=== PATIENT | female | born 1985 | race Caucasian/White ===

== ENCOUNTER 2017-09-02 14:43 | Emergency (ER) | payer OTHER ==
[2017-09-02 15:22] LABS: % IMMATURE GRANULYOCYTES 0.3 % (0.0-1.1); ABSOLUTE IMMATURE GRANULOCYTES 0.02 10^3/uL (0.00-0.10); ADD DIFF? NO; ADD MORPH? NO; ADD SCAN? NO; ATYPICAL LYMPHOCYTE FLAG 10 (0-99); FRAGMENT RBC FLAG 0 (0-99); HEMATOCRIT 43.7 % (38.0-47.0); HEMOGLOBIN 15.6 g/dL (12.6-16.3); LEFT SHIFT FLG 0 (0-99); LIPEMIA HEMOLYSIS FLAG 90 (0-99); MEAN CELL HEMOGLOBIN 31.5 pg (27.9-34.1); MEAN CELL HEMOGLOBIN CONCENTR. 35.7 g/dL (32.4-36.7); MEAN CELL VOLUME 88.1 fL (81.5-99.8); PLATELET CLUMPS FLAG 0 (0-99); PLATELET COUNT 227 10^3/uL (150-400); RED BLOOD CELL COUNT 4.96 10^6/uL (4.18-5.33); RED CELL DISTRIBUTION WIDTH 12.6 % (11.5-15.2)
--- NOTE | 2017-09-02 15:25 | EDPHY ---
HPI/HX/ROS/PE/MDM Narrative: CHIEF COMPLAINT: Abdominal pain HPI: The patient is a 31 y/o female arriving with her complaining of lower abdominal pain worse on the right side onset today. She noticed minor abdominal pain this morning but symptoms worsened prompting her to present to the ED. She has associated nausea and one instance of diarrhea this morning. She denies vomiting, fever, urinary complaints, abnormal menstrual symptoms, or any other associated symptoms. She is trying to get but denies any medical assistance. She had her appendix removed over 15 years ago. REVIEW OF SYSTEMS: Aside from elements discussed in the HPI, a comprehensive 10-point review of systems was reviewed and is negative. PMH: Arnold Chiari malformation SOCIAL HISTORY: , teacher, lives in [place] PHYSICAL EXAM: General:Patient is alert, uncomfortable, appears in pain ENT:Eyes are normal to inspection. ENT inspection normal. Neck: Normal inspection. Full range of motion. Respiratory:No respiratory distress. Breath sounds normal bilaterally. Cardiovascular: Regular rate and rhythm. Normal cap refill. Abdomen: Severe tenderness in the lower right quadrant to palpation. There are no peritoneal signs. There are normal bowel sounds. Back: Normal to inspection. No tenderness to palpation. Skin: Normal color. No rash. Warm and dry. Extremities: Normal appearance. Full range of motion. Neuro: Oriented x3. Normal motor function. Normal sensory function. ED Course: 1624: I spoke to radiology regarding this patient's ultrasound. Ultrasound shows no ovarian torsion but a likely hemorrhagic cyst on the right ovary. I reassessed the patient and informed her of the results of her workup. I feel she is safe to be released and instruct her to follow up with her in home aide in a week. Patient agrees with this course of action. She requested another dose of 0.5 hydromorphone and I agreed to administer. MDM: This patient presents with relatively sudden severe RLQ pain. Given the fact that she has a normal WBC, normal UA, history of appendectomy and US findings consistent with R-sided ovarian cyst which is a reasonable etiology for her pain , I think her most likely diagnosis is pain secondary to ovarian cyst. I had an extensive discussion with the patient and her regarding option of performing additional imaging, including CT or MRI to exclude other pathology. They are comfortable with the plan to be discharged without further testing and will follow-up with [facility]NAGER. The patient declined a pelvic exam, and she understands I cannot rule out TOA, PID without this exam, but we both agree she is low risk for these. - Data Points Imaging Results: Imaging Impressions Pelvic/Renal Ultrasound 09/02/17 15:22 Impression: 1. No acute findings in the pelvis. 2. Complex 2.5 cm right ovarian cyst. Ultrasound follow up is recommended in 6 weeks. 3. 8.4 cm subserosal anterior uterine fibroid. Findings discussed with Thiago Root M.D., on September 02, 2017 at 1623. Study: Ultrasound of the lower abdomen Indication: Abdominal pain Results: Ultrasound of the lower abdomen was obtained. The results of the study are: hemorrhagic cyst on the right ovary. No ovarian torsion. The study was read by the radiologist. I viewed the images myself on the PACS system. Imaging: Discussed imaging studies w/ manager call Radiologist, I viewed and interpreted images myself Laboratory Results: Laboratory Results 09/02/17 15:10 09/02/17 15:10 09/02/17 09/02/17 09/02/17 15:10 15:10 15:10 WBC 6.71 10^3/uL 10^3/uL (3.80-9.50) RBC 4.96 10^6/uL 10^6/uL (4.18-5.33) Hgb 15.6 g/dL g/dL (12.6-16.3) Hct 43.7 % % (38.0-47.0) MCV 88.1 fL fL (81.5-99.8) MCH 31.5 pg pg (27.9-34.1) MCHC 35.7 g/dL g/dL (32.4-36.7) RDW 12.6 % % (11.5-15.2) Plt Count 227 10^3/uL 10^3/uL (150-400) MPV 11.0 fL fL (8.7-11.7) Neut % (Auto) 61.4 % % (39.3-74.2) Lymph % (Auto) 28.9 % % (15.0-45.0) [place] % (Auto) 7.2 % % (4.5-13.0) Eos % (Auto) 1.3 % % (0.6-7.6) Baso % (Auto) 0.9 % % (0.3-1.7) Nucleat RBC Rel Count 0.0 % % (0.0-0.2) Absolute Neuts (auto) 4.12 10^3/uL 10^3/uL (1.70-6.50) Absolute Lymphs (auto) 1.94 10^3/uL 10^3/uL (1.00-3.00) Absolute Monos (auto) 0.48 10^3/uL 10^3/uL (0.30-0.80) Absolute Eos (auto) 0.09 10^3/uL 10^3/uL (0.03-0.40) Absolute Basos (auto) 0.06 10^3/uL 10^3/uL (0.02-0.10) Absolute Nucleated RBC 0.00 10^3/uL 10^3/uL (0-0.01) Immature Gran % 0.3 % % (0.0-1.1) Immature Gran # 0.02 10^3/uL 10^3/uL (0.00-0.10) Sodium 140 mEq/L mEq/L (134-144) Potassium 4.0 mEq/L mEq/L (3.5-5.2) Chloride 104 mEq/L mEq/L (97-110) Carbon Dioxide 21 mEq/l L mEq/l (22-31) Anion Gap 15 mEq/L mEq/L (8-16) BUN 14 mg/dL mg/dL (7-23) Creatinine 0.9 mg/dL mg/dL (0.6-1.0) Estimated GFR > 60 Glucose 89 mg/dL mg/dL (70-100) Calcium 9.8 mg/dL mg/dL (8.5-10.4) Beta HCG, Qual NEGATIVE Medications Given: Discontinued Medications Hydromorphone HCl (Dilaudid) 0.5 mg IVP EDNOW ONE Stop: 09/02/17 15:29 Last Admin: 09/02/17 15:29 Dose: 0.5 mg Hydromorphone HCl (Dilaudid) 0.5 mg IVP EDNOW ONE Stop: 09/02/17 16:40 Last Admin: 09/02/17 16:49 Dose: 0.5 mg General Time Seen by Provider: 09/02/17 15:03 Initial Vital Signs: Initial Vital Signs Temperature (C) 36.5 C 09/02/17 14:45 Heart Rate 81 09/02/17 14:45 Respiratory Rate 20 09/02/17 14:45 Blood Pressure 135/95 H 09/02/17 14:45 O2 Sat (%) 97 09/02/17 14:45 O2 Delivery Mode Room Air Allergies/Adverse Reactions: Sulfa (Sulfonamide Antibiotics) Allergy (Verified 09/02/17 14:48) Home Medications: Medication Instructions Recorded oxyCODONE/APAP 5/325 [Percocet 1 - 2 tab PO Q4H PRN #14 tab 09/02/17 5/325 (*)] Departure - Departure Disposition: [facility] Inpatient Acute Clinical Impression: Ovarian cyst, Abdominal pain Condition: Good Instructions: Ovarian Cyst (ED), Abdominal Pain (ED) Additional Instructions: 1. Follow up with your in home aide in 1 week. 2. Return to the ED for uncontrollable vomiting, diarrhea, or other worsening of condition. Referrals: Yolande Henson DO [Doctor of Osteopathy] - As per Instructions Prescriptions: oxyCODONE/APAP 5/325 [Percocet 5/325 (*)] 1 - 2 tab PO Q4H PRN #14 tab PRN Reason: Pain, Severe Report Scribed for: Thiago Root Report Scribed by: Katiuska Castillo Date of Report: 09/02/17 Time of Report: 15:26 Physician Review and Approval Statement: Portions of this note were transcribed by an ED scribe. I personally performed the history, physical exam, and medical decision making; and confirm the accuracy of the information in the transcribed note.
[2017-09-02] MEDS ORDERED: HYDROmorphONE/DILAUDID 1 MG/ML INJ ONE (15:28)
[2017-09-02] MEDS ORDERED: HYDROmorphONE/DILAUDID 1 MG/ML INJ IVP ONE ×2 (15:28→16:39)
[2017-09-02 15:39] LABS: ANION GAP 15 mEq/L (8-16); CALCIUM 9.8 mg/dL (8.5-10.4); CARBON DIOXIDE 21 mEq/l (22-31); CHLORIDE 104 mEq/L (97-110); CREATININE 0.9 mg/dL (0.6-1.0); GLOMERULAR FILTRATION RATE > 60; GLUCOSE 89 mg/dL (70-100); SODIUM 140 mEq/L (134-144)
[2017-09-02 17:32] LABS: COLOR YELLOW; LEUKOCYTE ESTERASE,URINE NEGATIVE (NEGATIVE); NITRITE,URINE NEGATIVE (NEGATIVE)
[2017-09-02 18:01] VITALS: BP 122/75; PULSE 72; RESP 15; TEMP 99; O2SAT 95
== END 2017-09-02 18:00 | disposition home or self-care (01) ==
DX: N83.201 Unspecified ovarian cyst, right side (principal)
CPT/HCPCS: 96374; J1170